=== PATIENT | male | born 1955 | race Two or more races ===

== ENCOUNTER 2018-09-05 06:18 | Day surgery (SDC) | payer OTHER ==
[~2018-09-05 06:18] MED LIST: FLOMAX; IBERSARTAN PO; [UNRECOGNIZED DRUG - OTHER]
[2018-09-05] MEDS ORDERED: MONTELUKAST SOD10 MG PO (15:52)
[2018-09-05] MEDS ORDERED: JENTADUETO 2.51 EACH PO (15:53)
[2018-09-05] MEDS ORDERED: PROTECT CARDIO1 EAC1 PO (15:54)
[2018-09-05] MEDS ORDERED: ALLEGRA-D 12 H1 EACH PO (15:55)
[2018-09-05] MEDS ORDERED: PROVENTIL S2 MG/5 ML PO (15:56)
[2018-09-05] MEDS ORDERED: IRBESARTAN75 MG PO (15:57)
[2018-09-05] MEDS ORDERED: TAMSULOSIN HCL0.4 MG PO (15:58)
[2018-09-05] MEDS ORDERED: FINASTERIDE5 MG PO (15:59)
[2018-09-05] MEDS ORDERED: VITAMIN B-121000 MC2 SL (15:59)
== END 2018-09-06 08:00 | disposition home or self-care (01) ==
LOC: CIR.AMB 06:18 → SURH 13:08 → O/R 13:08 → SURH 13:51 → CIR.AMB 09-06 08:00 → SURH 09-06 10:42
DX: N21.0 Calculus in bladder (principal); N13.8 Other obstructive and reflux uropathy; A54 Gonococcal infection; N32.0 Bladder-neck obstruction; N40.1 Benign prostatic hyperplasia with lower urinary tract symptoms; N21.8 Other lower urinary tract calculus

== ENCOUNTER 2021-11-07 11:38 | Emergency (ER) | payer OTHER ==
[~2021-11-07] VITALS: Ht 180.3 cm; Wt 112.5 kg
[~2021-11-07 11:38] MED LIST changes: +ALLEGRA-D 12 H1 EACH PO; +FINASTERIDE5 MG PO; +IRBESARTAN75 MG PO; +JENTADUETO 2.51 EACH PO; +MONTELUKAST SOD10 MG PO; +PROTECT CARDIO1 EAC1 PO; +PROVENTIL S2 MG/5 ML PO; +TAMSULOSIN HCL0.4 MG PO; +VITAMIN B-121000 MC2 SL
[2021-11-07] MEDS ORDERED: JENTADUETO 2.51 EAC2 PO (12:01)
[2021-11-07] MEDS ORDERED: AVAPRO75 MG PO (12:01)
[2021-11-07] MEDS ORDERED: CRESTOR10 MG PO (12:02)
[2021-11-07] MEDS ORDERED: ECOTRIN81 MG PO (12:02)
[2021-11-07] MEDS ORDERED: TOPROL XL25 M1 PO (12:02)
== END 2021-11-07 15:49 | disposition home or self-care (01) ==
LOC: ER 11:38
DX: N21.0 Calculus in bladder (principal); N23 Unspecified renal colic; I10 Essential (primary) hypertension